=== PATIENT | female | born 1975 | race Caucasian/White ===

== ENCOUNTER → 2017-01-07 | Outpatient (CLI) | payer BC ==
[~2017-01-07] MED LIST: ALPR0.25 PO
--- NOTE | 2017-01-10 14:37 | Diagnostic Imaging Report ---
EXAMINATION: Bilateral screening mammogram 2D views with tomosynthesis. The current study was also evaluated with a Computer Aided Detection (CAD) system. INDICATION: Screening. PERSONAL HISTORY: No current complaints stated on the questionnaire. FINDINGS: The breasts are composed of heterogeneously dense parenchyma which may decrease mammographic sensitivity. Punctate benign-appearing calcifications are seen. Allowing for technique and positional differences, no suspicious change is seen. IMPRESSION: No significant change. ACR BI-RADS Category 2: Benign findings. Result letter will be mailed to the patient. Note: At least 10% of breast cancer is not imaged by mammography. Dictated by: Dictated on workstation # [id number]
== END ==
LOC: RAD 12:26
PROVIDERS: ATTEND Nurse Practitioner Family
DX: Z12.31 Encounter for screening mammogram for malignant neoplasm of breast (principal)
CPT/HCPCS: 77067

== ENCOUNTER → 2017-05-17 | Outpatient (CLI) | payer BC ==
--- NOTE | 2017-05-17 12:13 | Diagnostic Imaging Report ---
INDICATION: survey. TECHNIQUE: Multiple real-time grayscale images were obtained over the gravid uterus. COMPARISON: No prior examinations available for comparison. FINDINGS: There is a single living intrauterine in a variable presentation. There is a normal volume of amniotic fluid. Placenta is anterior. There is no previa. Anatomical survey is unremarkable apart from limited visualization of the spine due to positioning. Heart rate is 132 beats per minute and regular. The biometry correlates with a gestational age of 18 weeks 5 days. IMPRESSION: Single living intrauterine with a sonographically estimated gestational age of 18 weeks 5 days and estimated date of confinement of October 13, 2017. Limited visualization of the spine due to positioning. Biometrical measurements are as follows: Biparietal 4.01 cm, age 18 weeks 2 days. Head circumference 15.84 cm, age 18 weeks 5 days. Abdominal circumference 13.78 cm, age 19 weeks 2 days. Femur length 2.71 cm, age 18 weeks 2 days. Sonographic estimate age: 18 weeks 5 days. Sonographic estimated date of delivery: 10/13/2017. Estimated Weight: 255 gm (+/- 37 gm). LMP percentile: 18%. heart rate: 132 beats per minute. number: 1 of 1. Dictated on workstation # [id number]
== END ==
LOC: RAD 09:28
PROVIDERS: ATTEND Obstetrics & Gynecology
DX: Z36.89 Encounter for other specified antenatal screening (principal); Z3A.18 18 weeks gestation of pregnancy
CPT/HCPCS: 76805

== ENCOUNTER → 2017-12-20 | Outpatient (CLI) | payer BC ==
[~2017-12-20] MED LIST changes: +ACHD5005 PO; +CALC500T7 PO; +DOCU100C37 PO; +IBUP-844 PO
--- NOTE | 2017-12-20 15:43 | Diagnostic Imaging Report ---
INDICATION: Back pain. TIME OF EXAM: 12:43 p.m. Three views of the lumbar spine were obtained. Curvature and alignment is normal. Vertebral body heights are maintained. Disc spaces are preserved. No fracture or subluxation is seen. IMPRESSION: No acute bony abnormality is detected. Dictated by: Dictated on workstation # [id number]
== END ==
LOC: RAD 12:09
PROVIDERS: ATTEND Nurse Practitioner Family
DX: M54.5 Low back pain (principal)
CPT/HCPCS: 72100

== ENCOUNTER → 2017-12-24 | Outpatient (CLI) | payer BC ==
--- NOTE | 2017-12-24 09:39 | Diagnostic Imaging Report ---
PROCEDURE: MRI lumbar spine. TECHNIQUE: Multiplanar, multisequence MRI of the lumbar spine was performed without contrast. INDICATION: Low back pain. There are no previous MRI examinations available for comparison. The plain film examination of the lumbar spine performed on 12/20/2017 failed to show any sign of an acute abnormality. On the T2 sagittal images of this exam, the vertebral body heights and alignment are within normal limits and similar to the plain film study. There is mild narrowing of the disc space at L5-S1 and the disc at this level is desiccated. There also appears to be a small disc bulge to the right at this level. A portion of the disc material also appears to have migrated cephalad. The disc compresses the right ventral aspect of the thecal sac and does produce mild spinal stenosis. There may also be encroachment of the exiting right nerve root at this level. There is a slight disc bulge essentially at the L4-L5 level. The disc flattens the ventral aspect of the thecal sac and narrows the AP diameter of thecal sac to 10.1 MM. There is mild narrowing of the neural foramen bilaterally at this level as well. The remainder of the lumbar spine is unremarkable for spinal stenosis or nerve root encroachment. There is no abnormal signal arising from the cord or the vertebral bodies to indicate an acute abnormality. There is no sign of a paraspinal mass. IMPRESSION: 1. There is a disc bulge to the right at L5-S1. A portion of the disc material has migrated cephalad and there is mild central stenosis on the right at this level and there may be encroachment of the exiting right nerve root as well. 2. There is borderline central stenosis at L4-L5. There is no significant neural foraminal narrowing at this level. 3. The remainder of the lumbar spine is unremarkable for spinal stenosis or nerve root encroachment. 4. There is no sign of an acute bony abnormality or cord lesion. Dictated by: Dictated on workstation # [id number]
== END ==
LOC: RAD 07:55
PROVIDERS: ATTEND Nurse Practitioner Family
DX: M48.07 Spinal stenosis, lumbosacral region (principal); M51.17 Intervertebral disc disorders with radiculopathy, lumbosacral region
CPT/HCPCS: 72148

== ENCOUNTER → 2018-11-29 | Outpatient (CLI) | payer BC ==
--- NOTE | 2018-11-29 10:18 | Diagnostic Imaging Report ---
INDICATION: Screening. TECHNIQUE: The current study was also evaluated with a Computer Aided Detection (CAD) system. 3D Tomographic imaging was also performed. COMPARISON: 01/07/2017 and 06/17/2015. FINDINGS: There are scattered fibroglandular densities bilaterally. There is no dominant mass, spiculated lesion, or suspicious calcification identified. The skin, nipples, and axillae are unremarkable. There are a few tiny benign type calcifications. IMPRESSION: Benign findings. ACR BI-RADS Category 2: Benign findings. Result letter will be mailed to the patient. Note: At least 10% of breast cancer is not imaged by mammography. Dictated by: Dictated on workstation # [id number]
== END ==
LOC: RAD 07:54
PROVIDERS: ATTEND Obstetrics & Gynecology
DX: Z12.31 Encounter for screening mammogram for malignant neoplasm of breast (principal)
CPT/HCPCS: 77067

== ENCOUNTER → 2020-04-29 | Outpatient (CLI) | payer BC ==
[~2020-04-29] MED LIST changes: +SERT50TA2 PO; +SUCR1TAB PO; +ZANTAC
--- NOTE | 2020-04-29 09:07 | Diagnostic Imaging Report ---
PROCEDURE: Pelvic complete, transabdominal and transvaginal sonogram. Limited pelvic doppler. TECHNIQUE: Multiple real-time grayscale images were obtained of the pelvis in various projections transabdominally and transvaginally. Limited pelvic duplex images were obtained. HISTORY: Deep dyspareunia. COMPARISON: None available. FINDINGS: Uterus: The uterus is anteverted and measures 8.8 x 4.1 x 5.7 cm. There are a few subcentimeter intramural fibroids measuring up to 1.0 cm. Endometrium: The endometrium is normal in thickness and measures 0.4 cm. There is minimal fluid within the endometrial cavity. Adnexa: Both ovaries have a normal physiologic appearance. The right ovary measures 3.1 x 1.5 x 2.1 cm and the left ovary measures 2.3 x 1.2 x 1.8 cm. Other: There is no free fluid within the pelvis. IMPRESSION: 1. Subcentimeter intramural uterine fibroids. 2. Trace fluid in the endometrial cavity. 3. Unremarkable appearance of the ovaries. Dictated by: Dictated on workstation # [id number]
--- NOTE | 2020-04-29 14:00 | Diagnostic Imaging Report ---
INDICATION: Routine screening. Comparison is made with prior mammogram 11/29/2018 and 01/07/2017. 2-D and 3-D bilateral screening mammography was performed with CAD. Both breasts remain heterogeneously dense, limiting the sensitivity of mammography. There is a density in the outer left breast appearing more prominent on today's study when compared with prior exams. This is best seen on the CC view laterally at mid depth. Additional views are recommended. This may be superiorly located on the MLO view. Right breast is unremarkable. There are no suspicious microcalcifications. Axillae are unremarkable. IMPRESSION: BI-RADS 0 Left breast density. Additional views recommended for further evaluation. ACR BI-RADS Category 0: Incomplete. (Needs additional imaging evaluation). Result letter will be mailed to the patient. Note: At least 10% of breast cancer is not imaged by mammography. Dictated by: Dictated on workstation # [id number]
== END ==
LOC: RAD 08:00
PROVIDERS: ATTEND Obstetrics & Gynecology
DX: Z12.31 Encounter for screening mammogram for malignant neoplasm of breast (principal); D25.9 Leiomyoma of uterus, unspecified; N94.12 Deep dyspareunia; R92.2 Inconclusive mammogram
CPT/HCPCS: 76830; 76856; 77063; 77067

== ENCOUNTER 2020-05-05 05:29 | Outpatient (RCR) | payer BC ==
[~2020-05-05] VITALS: Ht 154.9 cm; Wt 70.0 kg
== END 2020-05-05 12:41 | disposition home or self-care (01) ==
LOC: PREOP 05:29
PROVIDERS: ATTEND Surgery
DX: Z01.812 Encounter for preprocedural laboratory examination (principal); R13.10 Dysphagia, unspecified; Z20.822 Contact with and (suspected) exposure to COVID-19
CPT/HCPCS: 87635

== ENCOUNTER 2020-05-07 10:30 | Day surgery (SDC) | payer BC ==
[~2020-05-07] VITALS: Ht 155 cm; Wt 70.0 kg
[2020-05-07] MEDS ORDERED: LACTATED RINGERS 1,000 ML IV ONE (10:39)
[2020-05-07] MEDS ORDERED: LACTATED RINGERS 1,000 ML IV STA (10:39)
[2020-05-07] MEDS ORDERED: LIDOCAINE JELLY 2% 6 ML SYRINGE MM PRN (10:45)
[2020-05-07] MEDS ORDERED: HURRICAINE EXT TUBE (BENZOCAINE) XX PRN (10:45)
[2020-05-07] MEDS ORDERED: PROPOFOL INJECTION 50 ML IV ONE (10:49)
[2020-05-07] MEDS ORDERED: MIDAZOLAM 2 MG/2 ML (VERSED) VIAL ONE (10:49)
[2020-05-07 10:55] VITALS: BP 156/114
[2020-05-07] MEDS ORDERED: ONDANSETRON 4 MG/2 ML (SDV) Z0FRAN ONE (10:59)
[2020-05-07] MEDS ORDERED: FAMOTIDINE 20MG/2ML IV (PEPCID) ONE ×2 (11:04→11:05)
[2020-05-07] MEDS ORDERED: HURRICAINE EXT TUBE (BENZOCAINE) ONE (11:10)
[2020-05-07] MEDS ORDERED: LIDOCAINE JELLY 2% 6 ML SYRINGE ONE (11:14)
--- NOTE | 2020-05-07 11:14 | Progress Note-Pre Operative ---
Pre-Operative Progress Note H&P Reviewed The H&P was reviewed, patient examined and no changes noted. Date Seen by Provider: May 07, 2020 Time Seen by Provider: 11:00 Date H&P Reviewed: May 07, 2020 Time H&P Reviewed: 11:00 Pre-Operative Diagnosis: dysphagia, GERD RAYMOND ZUNIGA MD May 07, 2020 11:14
[2020-05-07] MEDS ORDERED: morphine INJ 10 MG/ML 1ML (SYR OR VIAL) IVP PRN ×2 (11:15)
[2020-05-07] MEDS ORDERED: ACETAMINOPHEN 325 MG TABLET PO PRN (11:15)
[2020-05-07] MEDS ORDERED: ONDANSETRON 4 MG/2 ML (SDV) Z0FRAN IVP ONE (11:15)
[2020-05-07] MEDS ORDERED: HYDROcodone/APAP 5 MG/325 MG (LORTAB) TAB PO PRN (11:15)
[2020-05-07] MEDS ORDERED: ONDANSETRON 4 MG/2 ML (SDV) Z0FRAN IVP PRN (11:15)
[2020-05-07] MEDS ORDERED: PANT40TA2 PO (11:15)
[2020-05-07] MEDS ORDERED: FAMOTIDINE 20MG/2ML IV (PEPCID) IV ONE (11:15)
[2020-05-07 11:45] VITALS: BP 124/71
[2020-05-07 11:50] VITALS: BP 123/69
[2020-05-07 11:55] VITALS: BP 157/89
--- NOTE | 2020-05-07 11:57 | Progress Note-Post Operative ---
Post-Operative Progess Note Surgeon (s)/Electrical Maintenance Engineer (s) Surgeon RAYMOND ZUNIGA MD Electrical Maintenance Engineer: none Pre-Operative Diagnosis dysphagia, GERD Post-Operative Diagnosis reflux esophagitis(stage 2-3), distal esoph stricture, moderate HH(3cm), moderate gastritis. Procedure & Operative Findings Date of Procedure 05/07/20 Procedure Performed/Findings EGD with bx and balloon dilatation Anesthesia Type mac Estimated Blood Loss Estimated blood loss (mL): minimal Specimens/Packing Specimens Removed ge jxn, antrum RAYMOND ZUNIGA MD May 07, 2020 11:57
--- NOTE | 2020-05-07 11:58 | Discharge Inst-Surgical ---
D/C Lap Instructions-KIDO New, Converted, or Re-Newed RX: RX on Chart Follow Up Appt in weeks Activity as tolerated High Fiber Diet 25g or more per day Avoid Alcohol, Caffeine, Spicy [employer] and Acid foods. Drink 64 fluid oz or more of fluids per day. Symptoms to Report: Fever over 101 degree F, Nausea/Vomiting If any problems/questions: Contact your physician or go to Emergency Room RAYMOND ZUNIGA MD May 07, 2020 11:58
[2020-05-07 12:20] VITALS: BP 161/100
--- NOTE | 2020-05-07 12:21 | OPERATIVE REPORT ---
DATE OF SERVICE: 05/07/2020 ATTENDING PRIMARY CARE PHYSICIAN: Dr. Germania Mcclellan. PREOPERATIVE DIAGNOSES: Dysphagia, gastroesophageal reflux disease. POSTOPERATIVE DIAGNOSES: Reflux esophagitis between stage II and III with a mild distal esophageal stricture, moderate size hiatal hernia approximately 3 cm in size, moderate gastritis and no distal obstructions. PROCEDURES PERFORMED: EGD with biopsy and balloon dilatation. SURGEON: Raymond Zuniga MD. ANESTHESIA: Monitored anesthesia care. ESTIMATED BLOOD LOSS: Minimal. FINDINGS: Same as postoperative diagnoses. DISPOSITION: The patient tolerated the procedure well. INDICATIONS FOR PROCEDURE: The patient is a 45-year-old female, who has had issues with dysphagia as well as reflux. She reports in the past six months, she has developed dysphagia with difficulty swallowing different types of foods and feels an epigastric pressure sensation and will either reduce on its own over the time or she will regurgitate undigested food. She states that foods such as spicy, greasy and acidic foods make her symptoms worse as well. DESCRIPTION OF PROCEDURE: The patient was brought to the endoscopy suite and laid in the left lateral decubitus position. After adequate IV pain and sedative medications and conscious sedation anesthesia, a mouthpiece was applied. The endoscope was then placed in the mouth, visualizing the pharynx and hypopharyngeal region. Vocal cords, epiglottis and vallecula identified and appeared to be normal. The endoscope was then gently intubated into the esophageal opening and esophagus insufflated. The endoscope was then advanced through the first, second and third portion of esophagus. At the level of the GE junction, a reflux esophagitis between stage II and III identified with a mild distal esophageal stricture and Schatzki's ring identified. Biopsies were taken with forceps with visualization of good hemostasis. The endoscope was then advanced in the stomach and endoscope retroflexed, visualizing the Schatzki's ring; however, she did have a significant size hiatal hernia, which would be considered moderate at 3 cm. There was a moderate gastritis. No formal ulcerations, polyps or any neoplasms. A biopsy was taken of the stomach antrum to rule out H. pylori with visualization of good hemostasis. The endoscope was then advanced to the pylorus and the first and second portion of the duodenum, which appeared normal with no distal obstructions. The endoscope was then slowly withdrawn while taking a second look and suctioning of residual air with no additional findings. The patient tolerated the procedure well. We will recommend the necessary lifestyle and diet accommodation including small and more frequent meals, avoidance of eating at night as well as head elevation while lying supine. We will also proceed with a trial of Protonix 40 mg daily as well as to continue with Carafate as well. If she has recurrent symptoms of dysphagia or reflux despite maximal medical therapy and a repeat balloon dilatation, she may be a candidate for hiatal hernia repair; however, before proceeding with this, we would rule out an esophageal dysmotility disorder with an esophageal manometry study. Job ID: [id number] DocumentID: [id number] Dictated Date: 05/07/2020 11:54:08 Extrusion Engineer Date: 05/07/2020 12:20:59 Dictated By: RAYMOND ZUNIGA MD MTDD
--- NOTE | 2020-05-07 12:27 | Anesthesia-General Post-Op ---
MAC Patient Condition Mental Status/LOC: Same as Preop Cardiovascular: Satisfactory Nausea/Vomiting: Absent Respiratory: Satisfactory Pain: Controlled Complications: Absent Post Op Complications Complications None Follow Up Care/Instructions Patient Instructions None needed. Anesthesiology Discharge Order Discharge Order Patient is doing well, no complaints, stable vital signs, no apparent adverse anesthesia problems. No complications reported per nursing. ARCENIO ALLISON CRNA May 07, 2020 12:27
[2020-05-07 12:30] VITALS: BP 161/100
== END 2020-05-07 12:35 | disposition home or self-care (01) ==
LOC: ENDO 10:30
PROVIDERS: ATTEND Surgery
DX: K29.50 Unspecified chronic gastritis without bleeding (principal); K21.00 Gastro-esophageal reflux disease with esophagitis, without bleeding; K22.2 Esophageal obstruction; K44.9 Diaphragmatic hernia without obstruction or gangrene; F41.9 Anxiety disorder, unspecified; J45.909 Unspecified asthma, uncomplicated; Z79.899 Other long term (current) drug therapy; Z88.2 Allergy status to sulfonamides
CPT/HCPCS: 88305

== ENCOUNTER → 2020-05-08 | Outpatient (CLI) | payer BC ==
[~2020-05-08] MED LIST changes: +PANT40TA2 PO
--- NOTE | 2020-05-08 10:15 | Diagnostic Imaging Report ---
INDICATION: Left breast density. Patient presents for additional views. Correlation is made with the screening mammogram from 04/29/2020. Unilateral left 2-D and 3-D diagnostic mammography was performed including spot compression CC, rolled CC and conventional 90 degree lateral views. Additional views show persistent slightly nodular density in the outer left breast approximately 6 cm from the nipple. This is not well-seen on the lateral view. No suspicious calcifications are seen. IMPRESSION: BI-RADS 0 Persistent nodular density outer left breast. Further evaluation with ultrasound is recommended and will be performed today. ACR BI-RADS Category 0: Incomplete. (Needs additional imaging evaluation). Result letter will be mailed to the patient. Note: At least 10% of breast cancer is not imaged by mammography. Dictated by: Dictated on workstation # [id number]
--- NOTE | 2020-05-08 10:16 | Diagnostic Imaging Report ---
INDICATION: Left breast density. Correlation is made with diagnostic mammogram earlier the same day and screening mammogram from 04/29/2020. Sonographic interrogation of the outer left breast was performed. There is a simple appearing cyst at the 3:30 location, 3 cm from the nipple measuring 10 mm x 5 mm x 6 mm. No internal vascularity is seen. This likely corresponds to the mammographic density. IMPRESSION: BI-RADS category 2 Simple cyst 3:30 location of the left breast, 3 cm from the nipple, corresponding to the mammographic density. The patient may return to routine annual screening mammography. ACR BI-RADS Category 2: Benign findings. Result letter will be mailed to the patient. Note: At least 10% of breast cancer is not imaged by mammography. Dictated by: Dictated on workstation # [id number]
== END ==
LOC: RAD 09:15
PROVIDERS: ATTEND Obstetrics & Gynecology
DX: Z01.812 Encounter for preprocedural laboratory examination (principal); N60.02 Solitary cyst of left breast; R13.10 Dysphagia, unspecified; Z20.822 Contact with and (suspected) exposure to COVID-19
CPT/HCPCS: 76642; 77065; G0279

== ENCOUNTER → 2022-03-16 | Outpatient (CLI) | payer BC ==
--- NOTE | 2022-03-16 14:27 | Diagnostic Imaging Report ---
INDICATION: Routine screening. Comparison is made prior mammogram of 04/29/2020 and 11/29/2018. 2-D and 3-D bilateral screening mammography was performed with CAD. Both breasts are heterogeneously dense, limiting the sensitivity of mammography. No mass or malignant-appearing microcalcifications are seen. Axillae are unremarkable. IMPRESSION: No mammographic features suspicious for malignancy are identified. ACR BI-RADS Category 1: Negative. Result letter will be mailed to the patient. Note: At least 10% of breast cancer is not imaged by mammography. BI-RADS Category 1 Dictated by: Dictated on workstation # [id number]
== END ==
LOC: RAD 08:07
PROVIDERS: ATTEND Nurse Practitioner Women's Health
DX: Z12.31 Encounter for screening mammogram for malignant neoplasm of breast (principal)
CPT/HCPCS: 77063; 77067